=== PATIENT | female | born 1995 | race Caucasian/White ===

== ENCOUNTER 2024-04-20 22:29 | Emergency (ER) | payer OTHER ==
[~2024-04-20] VITALS: Ht 165.1 cm; Wt 59.0 kg
[2024-04-20 22:29] VITALS: TEMP 97.9
[~2024-04-20 22:29] MED LIST: LEVETIRACETAM PO
[2024-04-20 22:46] LABS: BASOPHILS % 0.4 % (0.0-1.0); EOSINOPHILS # (AUTO) 0.2 (0.0-0.4); EOSINOPHILS % 2.1 % (0.0-6.0); HEMATOCRIT 40.4 % (34.2-44.1); HEMOGLOBIN 13.8 g/dL (12.0-16.0); LYMPHOCYTES # (AUTO) 3.2 (1.0-3.2); LYMPHOCYTES % 30.1 % (18.0-39.1); MEAN CORPUSCULAR HEMOGLOBIN 30.5 pg (28-32); MEAN CORPUSCULAR HGB CONC 34.2 g/dL (31-35); MEAN CORPUSCULAR VOLUME 89.2 fL (81-99); MONOCYTES % 9.2 % (4.4-11.3); NEUTROPHILS # (AUTO) 6.2 (2.1-6.9); PLATELET COUNT 189 x10e3/uL (140-360); RED BLOOD COUNT 4.53 x10e6/uL (3.6-5.1); WHITE BLOOD COUNT 10.71 x10e3/uL (4.8-10.8)
[2024-04-20 23:12] LABS: ALBUMIN 4.2 g/dL (3.5-5.0); ALBUMIN/GLOBULIN RATIO 1.6 (0.8-2.0); ANION GAP 15.9 mmol/L (8-16); BILIRUBIN,TOTAL 0.4 mg/dL (0.2-1.2); CALCIUM 9.5 mg/dL (8.4-10.2); CREATININE, SERUM 0.78 mg/dL (0.57-1.11); POTASSIUM 3.9 mmol/L (3.5-5.1); TOTAL PROTEIN 6.9 g/dL (6.5-8.1)
[2024-04-20 23:51] LABS: FREE THYROXINE INDEX 2.5903 (1.4-3.8); T3 UPTAKE 30.12 % (22.5-37.0); THYROID STIMULATING HORMONE 2.685 uIU/mL (0.350-4.940)
[2024-04-20 23:55] LABS: TROPONIN I < 0.001 ng/mL (0-0.300)
[2024-04-21 00:25] VITALS: PULSE 75; RESP 14; O2SAT 98
== END 2024-04-21 00:31 | disposition home or self-care (01) ==
LOC: ER 22:41
DX: R00.2 Palpitations (principal); R00.0 Tachycardia, unspecified
CPT/HCPCS: 36415; 71045; 80053; 84436; 84443; 84479; 84484; 84702; 85025; 93005; 99284